=== PATIENT | male | born 1990 | race American Indian/Alaskan Native ===

== ENCOUNTER 2016-09-07 16:27 | Emergency (ER) | payer BC ==
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
[2016-09-07] MEDS ORDERED: TORADOL IM ONE (17:58)
[2016-09-07] MEDS ORDERED: MORPHINE IM ONE (17:58)
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
[2016-09-07 18:43] VITALS: BP 134/93
[2016-09-07] MEDS ORDERED: NACL 0.9% 500 ML IR ONE (19:04)
--- NOTE | 2016-09-08 07:57 | XRay Report ---
RIGHT ANKLE, 3 views: History: Right ankle pain. Findings: Mild soft tissue swelling is identified. No acute osseous abnormality or joint pathology is identified. The fifth metatarsal base is intact. Impression: Soft tissue swelling. No acute osseous injury.
== END 2016-09-07 19:30 | disposition home or self-care (01) ==
LOC: ED 16:27
DX: S90.01XA Contusion of right ankle, initial encounter (principal); S60.511A Abrasion of right hand, initial encounter; F17.210 Nicotine dependence, cigarettes, uncomplicated; V89.9XXA Person injured in unspecified vehicle accident, initial encounter; Y93.89 Activity, other specified; Y92.488 Other paved roadways as the place of occurrence of the external cause; Y99.8 Other external cause status
CPT/HCPCS: 73130; 73562; 73590; 73610; 73630; 96372; 99283; J1885; J2270

== ENCOUNTER 2016-10-04 14:55 | Emergency (ER) | payer BC ==
--- NOTE | 2016-10-04 15:27 | Emergency Department Report ---
Entered by ANDREINA GONZALEZ, acting as scribe for ROSI SWIFT NP. Chief Complaint: Shoulder Injury Stated Complaint: TREE FELL ON HIM Time Seen by Provider: 10/04/16 15:01 - HPI History of Present Illness: 26 y/o male presents with left shoulder and left arm pain s/p injury that occurred while cutting a tree earlier today. Additional Sx include mild numbness to left arm and fingers. - ROS Review of Systems: +left shoulder pain +left arm pain +numbness - Exam Vital Signs: Vital Signs 10/04/16 15:13 Temperature 99.1 F Pulse Rate 86 Respiratory 18 Rate Blood Pressure 132/89 O2 Sat by Pulse 97 Oximetry Physical Exam: BACK: abrasion noted to back NECK: No posterior c spine ttp CHEST: chest wall ttp, left sided SKIN: abrasion and contusion to left shoulder, back and left side of chest MSE screening note: Focused history and physical exam performed. Due to findings the following was ordered: xr ED Disposition for MSE Condition: Stable This documentation as recorded by the scribe,ANDREINA GONZALEZ,accurately reflects the service I personally performed and the decisions made by JAMISON garza TRACY M, NP.
[2016-10-04] MEDS ORDERED: DILAUDID IV ONE (16:40)
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
[2016-10-04] MEDS ORDERED: NACL 0.9% 1000 ML 1,000 ML IV ONE (16:42)
[2016-10-04 17:05] VITALS: BP 120/80
[2016-10-04 17:09] LABS: Basophils % (Auto) 0.5 % (0.0-1.8); Eosinophils % (Auto) 1.3 % (0.0-4.3); Hematocrit 40.3 % (35.5-45.6); Hemoglobin 13.1 gm/dl (11.8-15.2); Mean Corpuscular HGB Conc 32 % (32-34); Mean Corpuscular Volume 79 fl (84-94); Platelet Count 285 K/mm3 (140-440); Red Blood Count 5.13 M/mm3 (3.65-5.03); Red Cell Distribution Width 13.8 % (13.2-15.2); White Blood Count 13.4 K/mm3 (4.5-11.0)
[2016-10-04 17:10] LABS: Mean Corpuscular Hemoglobin 26 pg (28-32)
[2016-10-04 17:19] LABS: INR 1.03 (0.87-1.13)
[2016-10-04 17:52] LABS: Chloride 102.9 mmol/L (98-107); Potassium 4.4 mmol/L (3.6-5.0); Sodium 141 mmol/L (137-145)
[2016-10-04 17:53] LABS: Alanine Aminotransferase 16 units/L (7-56); Albumin 4.3 g/dL (3.9-5); Albumin/Globulin Ratio 1.5 %; Alkaline Phosphatase 70 units/L (35-129); Anion Gap 16 mmol/L; BUN/Creatinine Ratio 13.33; Blood Urea Nitrogen 12 mg/dL (9-20); Calcium 9.2 mg/dL (8.4-10.2); Carbon Dioxide 27 mmol/L (22-30); Creatine Kinase 245 units/L (55-170); Glucose 77 mg/dL (75-100); Total Protein 7.2 g/dL (6.3-8.2)
--- NOTE | 2016-10-05 08:33 | XRay Report ---
LEFT HUMERUS: History: Left arm pain. AP and lateral views of the humerus demonstrate normal mineralization and contours for this patient's age. No destructive changes are noted and the adjacent soft tissues are normal. IMPRESSION: Normal left humerus.
--- NOTE | 2016-10-05 08:33 | XRay Report ---
ROUTINE CHEST, TWO VIEWS: HISTORY: chest pain. The trachea, heart, mediastinal contour, lung davis and bony thorax are unremarkable. IMPRESSION: Unremarkable chest x-ray.
--- NOTE | 2016-10-05 08:33 | XRay Report ---
LEFT SHOULDER: History: Left shoulder pain. Routine views demonstrate normal bony and soft tissue structures with normal joint alignment of the shoulder. IMPRESSION: Normal study.
--- NOTE | 2016-10-05 08:34 | XRay Report ---
THORACIC SPINE: History: Back pain. The bones are normally mineralized with well preserved vertebral height, alignment and interspace distances. No paraspinal soft tissue widening is noted. IMPRESSION: Normal study.
== END 2016-10-04 17:45 | disposition short-term general hospital (02) ==
LOC: ED 14:55
DX: S40.012A Contusion of left shoulder, initial encounter (principal); R07.89 Other chest pain; M62.81 Muscle weakness (generalized); Z91.018 Allergy to other foods; W20.8XXA Other cause of strike by thrown, projected or falling object, initial encounter; Y93.89 Activity, other specified; Y99.9 Unspecified external cause status; Y92.89 Other specified places as the place of occurrence of the external cause
CPT/HCPCS: 36415; 71020; 72070; 73030; 73060; 80053; 82550; 85025; 85610; 96361; 96374; 99285; J1170; J7030

== ENCOUNTER 2016-10-10 12:58 | Emergency (ER) | payer BC ==
[2016-10-10 13:15] VITALS: BP 120/81
[2016-10-10] MEDS ORDERED: TORADOL IM ONE (14:03)
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
== END 2016-10-10 14:24 | disposition home or self-care (01) ==
LOC: ED 12:58
DX: M79.1 Myalgia (principal)
CPT/HCPCS: 96372; 99282; J1885

== ENCOUNTER 2020-01-21 15:17 | Emergency (ER) | payer SELFPAY ==
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
--- NOTE | 2020-01-21 15:48 | Cat Scan Report ---
CT HEAD WITHOUT CONTRAST INDICATION : Stroke, neurological deficits <6 hours or symptoms present upon waking. TECHNIQUE: Axial imaging performed from the skull apex through the skull base without the use of con trast. Sagittal and coronal reformatted images. All CT scans at this location are performed using C T dose reduction for ALARA by means of automated exposure control. COMPARISON: None available FINDINGS: Parenchyma: A large area of encephalomalacia is identified in the right cerebral hemisphere measurin g up to 11.3 x 4.5 x 8.5 cm. This involves the right frontal, right parietal and superior right tempo ral lobes. It is unclear if this represents a chronic right MCA infarct or previous traumatic brain i njury. There is a smaller area of chronic encephalomalacia in the right subfrontal region measuring u p to 2 cm in diameter. No acute parenchymal findings, hemorrhage or mass is appreciated. No extra-axi al fluid collection. Ventricles: There is compensatory enlargement of the right lateral ventricle. The left lateral ventr icle, third and fourth ventricles are unremarkable. Bones: Right craniotomy changes are noted, correlate with history. Sinuses: The left frontal sinus and anterior left ethmoid air cells are opacified. The remaining sin uses and mastoid air cells are clear. Soft tissues: Soft tissues including the orbits appear normal. IMPRESSION: No acute intracranial abnormality is appreciated. Large and small area of encephalomalaci a in the right cerebral hemisphere which is probably secondary to traumatic brain injury although inf arct could be considered. CODE STROKE: Time of Communication (COMMUNICATIONS MAINTAINER/CDT): 1443 hours Licensed Practitioner Receiving Report: Dr. Vicente Dowling read back was performed. Signer Name: Adarsh Schafer Jr, MD Signed: 01/21/2020 3:43 PM Workstation Name: [id number]
[2020-01-21] MEDS ORDERED: levETIRAcetam 1000 MG/NS 0.75% 1,000 MG/100 ML BAG IV ONE (16:04)
[2020-01-21 16:09] LABS: Basophils % (Auto) 0.9 % (0.0-1.8); Eosinophils # (Auto) 0.2 K/mm3 (0.0-0.4); Eosinophils % (Auto) 3.8 % (0.0-4.3); Hematocrit 43.2 % (35.5-45.6); Hemoglobin 14.2 gm/dl (11.8-15.2); Lymphocytes # (Auto) 1.2 K/mm3 (1.2-5.4); Lymphocytes % (Auto) 22.6 % (13.4-35.0); Mean Corpuscular HGB Conc 33 % (32-34); Mean Corpuscular Volume 80 fl (84-94); Monocytes # (Auto) 0.6 K/mm3 (0.0-0.8); Monocytes % (Auto) 10.9 % (0.0-7.3); Platelet Count 223 K/mm3 (140-440); Red Cell Distribution Width 15.7 % (13.2-15.2)
--- NOTE | 2020-01-21 16:10 | Cat Scan Report ---
CT angio neck HISTORY: ams COMPARISON: CT angio neck HISTORY: Altered mental status. COMPARISON: CT head same day TECHNIQUE: CTA of the neck and head is performed after IV contrast. 3-D/MIP reformats were postproces sed. Percentage stenosis is determined by direct quantitative measurements of diseased internal [place] artery diameter compared with normal distal internal carotid artery reference segments or by crit eria similar to NASCET where applicable. All CT scans at this location are performed using CT dose re duction for ALARA by means of automated exposure control. FINDINGS: Encephalomalacia in the right MCA territory. Overlying prior craniotomy. CTA NECK: Aortic arch: No significant abnormality. Cervical vertebral arteries: No occlusion or hemodynamically significant stenosis. Common Carotid arteries: No occlusion or hemodynamically significant stenosis. Internal carotid arteries: There is occlusion of the proximal internal carotid arteries directly afte r takeoff. Reconstitution of the distal ICA to Ophthalmic artery from a patent [place]. CTA HEAD: Intracranial vertebral arteries: No occlusion or significant stenosis. Basilar artery: No occlusion or significant stenosis. Posterior cerebral arteries: No occlusion or significant stenosis. Intracranial internal carotid arteries: No occlusion or significant stenosis. Anterior cerebral arteries: No occlusion or significant stenosis. Middle cerebral arteries: No occlusion or significant stenosis. No aneurysm. Additional findings: None. IMPRESSION: 1. 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 2. CTA HEAD: No occlusion or significant stenosis of the major intracranial vasculature. I infromed Dr. Zhang at 3:04 Signer Name: Baltazar Marie MD Signed: 01/21/2020 4:05 PM Workstation Name: [id number] TECHNIQUE: Routine CTA of the neck is performed. 3-D/MIP reformats were postprocessed. Percentage st enosis is determined by direct quantitative measurements of diseased internal carotid artery diameter compared with normal distal internal carotid artery reference segments or by criteria similar to DEVORA CET where applicable. All CT scans at this location are performed using CT dose reduction for ALARA b y means of automated exposure control. FINDINGS: Aortic arch: No significant abnormality. Cervical vertebral arteries: No occlusion or hemodynamically significant stenosis. Common Carotid arteries: No occlusion or hemodynamically significant stenosis. Internal carotid arteries: No occlusion or hemodynamically significant stenosis. Additional findings: None. IMPRESSION: 1. No occlusion or significant stenosis.
--- NOTE | 2020-01-21 16:10 | Cat Scan Report ---
CT angio head HISTORY: Altered mental status COMPARISON: CT head same day.. TECHNIQUE: CTA of the neck and head is performed after IV contrast. 3-D/MIP reformats were postproces sed. Percentage stenosis is determined by direct quantitative measurements of diseased internal [place] artery diameter compared with normal distal internal carotid artery reference segments or by crit eria similar to NASCET where applicable. All CT scans at this location are performed using CT dose re duction for ALARA by means of automated exposure control. FINDINGS: Encephalomalacia in the right MCA territory. Overlying prior craniotomy. CTA NECK: Aortic arch: No significant abnormality. Cervical vertebral arteries: No occlusion or hemodynamically significant stenosis. Common Carotid arteries: No occlusion or hemodynamically significant stenosis. Internal carotid arteries: There is occlusion of the proximal internal carotid arteries directly afte r takeoff. Reconstitution of the distal ICA to Ophthalmic artery from a patent [place]. CTA HEAD: Intracranial vertebral arteries: No occlusion or significant stenosis. Basilar artery: No occlusion or significant stenosis. Posterior cerebral arteries: No occlusion or significant stenosis. Intracranial internal carotid arteries: No occlusion or significant stenosis. Anterior cerebral arteries: No occlusion or significant stenosis. Middle cerebral arteries: No occlusion or significant stenosis. No aneurysm. Additional findings: None. IMPRESSION: 1. 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 2. CTA HEAD: No occlusion or significant stenosis of the major intracranial vasculature. I infromed Dr. Zhang at 3:04 Signer Name: Baltazar Marie MD Signed: 01/21/2020 4:05 PM Workstation Name: [id number]
[2020-01-21 16:18] LABS: INR 1.15 (0.87-1.13)
[2020-01-21 16:19] LABS: Partial Thromboplastin Time 36.1 Sec. (24.2-36.6)
[2020-01-21 16:32] LABS: BUN/Creatinine Ratio 14; Blood Urea Nitrogen 13 mg/dL (9-20); Calcium 9.2 mg/dL (8.4-10.2); Hemolysis Index 2
[2020-01-21 20:33] VITALS: BP 114/80
== END 2020-01-21 18:25 | disposition admitted as inpatient to this hospital (09) ==
LOC: ED 15:17
DX: G81.90 Hemiplegia, unspecified affecting unspecified side (principal); R47.9 Unspecified speech disturbances; R41.89 Other symptoms and signs involving cognitive functions and awareness; Z79.899 Other long term (current) drug therapy; Z91.018 Allergy to other foods; Z98.890 Other specified postprocedural states; Z87.820 Personal history of traumatic brain injury
CPT/HCPCS: 36415; 70450; 70496; 70498; 80048; 82962; 84484; 85025; 85610; 85670; 85730; 93005; 96374; 99284; J1953; Q9967

== ENCOUNTER 2020-06-11 03:08 | Emergency (ER) | payer BC, MEDICAID ==
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
[2020-06-11 03:47] LABS: Basophils % (Auto) 0.2 % (0.0-1.8); Eosinophils % (Auto) 0.1 % (0.0-4.3); Hematocrit 42.3 % (35.5-45.6); Hemoglobin 13.9 gm/dl (11.8-15.2); Lymphocytes # (Auto) 0.9 K/mm3 (1.2-5.4); Lymphocytes % (Auto) 7.6 % (13.4-35.0); Mean Corpuscular HGB Conc 33 % (32-34); Mean Corpuscular Volume 79 fl (84-94); Platelet Count 239 K/mm3 (140-440); Red Blood Count 5.35 M/mm3 (3.65-5.03); Red Cell Distribution Width 14.6 % (13.2-15.2)
[2020-06-11 04:08] LABS: Alanine Aminotransferase 35 units/L (7-56); Albumin 4.4 g/dL (3.9-5); BUN/Creatinine Ratio 21; Blood Urea Nitrogen 19 mg/dL (9-20); Calcium 9.4 mg/dL (8.4-10.2); Hemolysis Index 4
--- NOTE | 2020-06-11 04:48 | Cat Scan Report ---
CT HEAD WITHOUT CONTRAST INDICATION / CLINICAL INFORMATION: Altered Mental Status. TECHNIQUE: All CT scans at this location are performed using CT dose reduction for ALARA by means of automated exposure control. COMPARISON: 01/21/2020 FINDINGS: HEMORRHAGE: None. EXTRA-AXIAL SPACES: Normal in size and morphology for the patient's age. VENTRICULAR SYSTEM: There is compensatory enlargement of the right lateral ventricle related to the e ncephalomalacia on the right.. This is unchanged. CEREBRAL PARENCHYMA: Large area of encephalomalacia on the right which appears unchanged. There is fo [place] encephalomalacia in the frontal lobe as well. This is also unchanged. MIDLINE SHIFT / HERNIATION: None. CEREBELLUM / BRAINSTEM: Small focal hypodensity appears unchanged ORBITS: Normal as visualized. SOFT TISSUES: No significant abnormality. SKULL: Prior right craniotomy is noted PARANASAL SINUSES / MASTOID AIR CELLS: Normal as visualized. ADDITIONAL FINDINGS: None. IMPRESSION: 1. No acute intracranial abnormality. Encephalomalacia on the right is again noted. Changes of prior right craniotomy are again noted. Signer Name: Micah Sun MD Signed: 06/11/2020 4:43 AM Workstation Name: [id number]
[2020-06-11] MEDS ORDERED: LORazepam 2 MG/ML VIAL ONE (08:54)
[2020-06-11] MEDS ORDERED: LORazepam 2 MG/ML VIAL IM ONE (08:55)
[2020-06-11] MEDS ORDERED: ZIPRASIDONE MESYLATE 20 MG VIAL IM ONE (08:55)
[2020-06-11] MEDS ORDERED: ALUM-MAG HYDROXIDE-SIMETHICONE 200-200-20MG/5ML ORAL LIQD 30 ML PO PRN (08:56)
[2020-06-11] MEDS ORDERED: ACETAMINOPHEN 325 MG TAB PO PRN (08:56)
[2020-06-11] MEDS ORDERED: MAGNESIUM HYDROXIDE (MOM) ORAL LIQD UDC PO PRN (08:56)
[2020-06-11] MEDS: ZIPRASIDONE MESYLATE 20 MG VIAL IM PRN (09:19)
[2020-06-11] MEDS: LORazepam 2 MG/ML VIAL IM PRN (09:19)
--- NOTE | 2020-06-11 12:12 | Electrocardiograph Report ---
[facility] Test Date: 2020-06-11 Test Time: 04:10:27 Pat Name: DENITA MEYERS Department: Room: Gender: M Personal Support Worker: SHARON : 1990 Requested By: RANDALL BUSTOS Order Number: [id number] Reading MD: Carlos Mann Measurements Intervals [place] Rate: 99 P: IN: QRS: 99 QRSD: 99 T: 56 QT: 353 QTc: 453 Interpretive Statements NSR NONSPECIFIC REPOL ABNORMALITY, ANT-LAT LEADS No previous ECG available for comparison Electronically Signed On 06-11-2020 12:12:05 EDT by Carlos Mann
[2020-06-11] MEDS ORDERED: QUEtiapine 100 MG TAB PO SCH (22:00)
[2020-06-11 23:29] LABS: Bilirubin,Urine NEG (Negative); Blood,Urine NEG (Negative); Color,Urine Yellow (Yellow); Mucus,Urine 1+ /HPF; Protein,Urine <15 mg/dL mg/dL (Negative)
[2020-06-11 23:34] LABS: Amphetamine Screen,Urine PRESUMPTIVE NEGATIVE; Benzodiazepines Screen,Urine PRESUMPTIVE POSITIVE; Cannabinoid Screen,Urine PRESUMPTIVE POSITIVE; Cocaine Screen,Urine PRESUMPTIVE NEGATIVE; Methadone Screen,Urine PRESUMPTIVE NEGATIVE; Opiate Screen,Urine PRESUMPTIVE NEGATIVE
[2020-06-12] MEDS ORDERED: QUEtiapine 100 MG TAB PO ONE (00:07)
[2020-06-12] MEDS: LORazepam 2 MG/ML VIAL IM PRN (02:30)
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
[2020-06-12 09:26] VITALS: BP 149/94
[2020-06-12] MEDS: clonazePAM 0.5 MG TAB PO SCH ×2 (10:57→11:15)
[2020-06-12] MEDS ORDERED: WATER FOR INJ Sterile (PF) 10 ML ONE (13:01)
[2020-06-12] MEDS: ZIPRASIDONE MESYLATE 20 MG VIAL IM PRN (14:00)
== END 2020-06-12 15:25 | disposition home or self-care (01) ==
LOC: ED 03:08 → EEVIPCON 03:08 → ED 06-12 15:25
DX: S09.90XA Unspecified injury of head, initial encounter (principal); I63.9 Cerebral infarction, unspecified; G35 Multiple sclerosis; R41.0 Disorientation, unspecified; Z79.899 Other long term (current) drug therapy; Z88.8 Allergy status to other drugs, medicaments and biological substances; Z20.822 Contact with and (suspected) exposure to COVID-19; R46.89 Other symptoms and signs involving appearance and behavior; X58.XXXA Exposure to other specified factors, initial encounter; Y93.89 Activity, other specified; Y92.89 Other specified places as the place of occurrence of the external cause; Y99.8 Other external cause status
CPT/HCPCS: 36415; 70450; 80053; 80307; 81001; 85025; 93005; 96372; 99284; J2060; J3486; U0003; 80320; G0480

== ENCOUNTER 2020-07-09 05:28 | Emergency (ER) | payer MEDICAID ==
[2020-07-09 06:16] LABS: Basophils # (Auto) 0.1 K/mm3 (0.0-0.1); Basophils % (Auto) 0.9 % (0.0-1.8); Eosinophils % (Auto) 0.2 % (0.0-4.3); Hematocrit 45.9 % (35.5-45.6); Hemoglobin 15.4 gm/dl (11.8-15.2); Lymphocytes # (Auto) 1.2 K/mm3 (1.2-5.4); Lymphocytes % (Auto) 15.9 % (13.4-35.0); Mean Corpuscular HGB Conc 34 % (32-34); Mean Corpuscular Volume 80 fl (84-94); Monocytes # (Auto) 0.7 K/mm3 (0.0-0.8); Monocytes % (Auto) 8.9 % (0.0-7.3); Platelet Count 231 K/mm3 (140-440); Red Blood Count 5.73 M/mm3 (3.65-5.03); Red Cell Distribution Width 14.4 % (13.2-15.2)
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
[2020-07-09 06:34] LABS: Blood Urea Nitrogen 7 mg/dL (9-20); Calcium 9.4 mg/dL (8.4-10.2); Hemolysis Index 5
[2020-07-09 06:35] LABS: BUN/Creatinine Ratio 10
[2020-07-09] MEDS ORDERED: ZIPRASIDONE MESYLATE 20 MG VIAL IM ONE ×2 (06:52)
[2020-07-09] MEDS ORDERED: LORazepam 2 MG/ML VIAL ONE (06:52)
[2020-07-09] MEDS ORDERED: LORazepam 2 MG/ML VIAL IM ONE (06:52)
[2020-07-09] MEDS ORDERED: WATER FOR INJ Sterile (PF) 10 ML ONE (06:53)
[2020-07-09] MEDS ORDERED: ZIPRASIDONE MESYLATE 20 MG VIAL IM PRN (14:56)
[2020-07-09] MEDS ORDERED: LORazepam 2 MG/ML VIAL IM PRN (14:58)
[2020-07-09] MEDS ORDERED: MAGNESIUM HYDROXIDE (MOM) ORAL LIQD UDC PO PRN (14:59)
[2020-07-09] MEDS ORDERED: ACETAMINOPHEN 325 MG TAB PO PRN (14:59)
[2020-07-09] MEDS ORDERED: ALUM-MAG HYDROXIDE-SIMETHICONE 200-200-20MG/5ML ORAL LIQD 30 ML PO PRN (14:59)
[2020-07-10 00:36] LABS: Amphetamine Screen,Urine PRESUMPTIVE NEGATIVE; Benzodiazepines Screen,Urine PRESUMPTIVE NEGATIVE; Cannabinoid Screen,Urine PRESUMPTIVE NEGATIVE; Cocaine Screen,Urine PRESUMPTIVE NEGATIVE; Methadone Screen,Urine PRESUMPTIVE NEGATIVE; Opiate Screen,Urine PRESUMPTIVE NEGATIVE
[2020-07-10 00:44] LABS: Bilirubin,Urine NEG (Negative); Blood,Urine NEG (Negative); Color,Urine Amber (Yellow); Mucus,Urine 3+ /HPF
--- NOTE | 2020-07-10 12:29 | Consultation ---
History of Present Illness - Reason for Consult Consult date: 07/10/20 Reason for consult: MHE Requesting physician: MERY TOMLINSON - History of Present Psychiatric Illness Per ED Provider: This is a 29-year-old man with traumatic brain surgery and previous craniotomy. He reports to the emergency department again other very similar conditions compared with his evaluation at the end of June. Apparently again he has been very aggressive with his family. He was brought here for stabilization. It looks like he was placed on a benzodiazepine and released after psychiatric evaluation: PSYCH HPI Patient is a 29-year-old unemployed currently disabled -[place] male with past medical history of traumatic brain injury with stroke status post left-sided weakness and also blindness in left eye and limited lesion in the right eye who presented to the ED by family with complaint of behavioral disturbances. Patient states he is as a personal detriment and because he wants to get out of the house. Patient started reciting jainism citations. 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 Family Psychiatric History: None reported or documented SOCIAL HISTORY Marital Status: Living Arrangements: traumatic brain injury with stroke status post left-sided weakness and also blindness in left eye and limited lesion in the right eye Employment Status: disabled Access to guns/weapons:none rported Education: college drop out History of Abuse: none reported Legal History: none REVIEW OF SYSTEMS ROS cannot be reliably obtained from the patient due to his confusion MENTAL STATUS EXAMINATION General Appearance and Behavior: Age appropriate, good hygiene, not wearing appropriate clothes, good eye contact, cooperative polite with questioning. Cooperation: Participating/engaged Psychomotor Behavior: Psychomotor agitation Mood: Good Affect and affective range: euthymic, euphoric Thought Process:Circumstantial, Illogical, Thought Content: Flight of ideas, Illogical, Grandiose, Speech: pressured, loud volume at times Intellectual Functioning: Average Suicidal Ideation: Denies SI Homicidal Ideation: Denies HIl Impulse Control: Impaired Insight and Judgment: Limited insight and judgment Memory: Normal, Attention: Divided attention impaired Orientation: Alert, oriented, MENTAL STATUS EXAMINATION General Appearance and Behavior: Age appropriate, good hygiene, wearing appropriate clothes, poor eye contact, uncooperative with questioning. Cooperation: disengaged Psychomotor Behavior: Psychomotor agitation Mood: n/a Affect and affective range: euthymic, euphoric Thought Process: Illogical, echolalial Thought Content: delusional Speech: pressured, loud volume at times Intellectual Functioning: Average Suicidal Ideation: n/a Homicidal Ideation: n/a Impulse Control: Impaired Insight and Judgment: Limited insight and judgment Memory: impaired Attention: Divided attention impaired Orientation: Alert, Assessment and Plan - Psychiatric problem (1) Cognitive and behavioral changes Current Visit: Yes Status: Acute Patient cannot benefit from acute inpatient due to hx TBI s/p impaired cognitive function. MEDICATIONS: Risks, benefits and alternatives of medications discussed with the patient, questions answered and consent obtained from patient. PSYCHOTHERAPY: Supportive psychotherapy provided MEDICAL: Per primary team DELIRIUM PRECAUTIONS: Please re-orient patient frequently, keep lights on during the day, and minimize benzodiazepines and opiates as these medications could worsen patient's confusion. SENIOR SYSTEMS DEVELOPER: DISPOSITION: Do Not Recommend acute inpatient psychiatric hospitalization at this time. Case discussed with Dr. Villatoor who agrees with current disposition LEGAL STATUS: 1013 rescinded FOLLOW-UP: Will sign off Thank you for the consult. Please contact with any questions and/or concerns. Medications and Allergies Allergies Allergy/AdvReac Type Severity Reaction Status Date / Time LEAFY FOODS Allergy Mild Vomiting Uncoded 06/11/20 11:04 Home Medications Medication Instructions Recorded Confirmed Last Taken Type Ibuprofen [Motrin 600 MG tab] 600 mg PO Q8H PRN #30 tablet 09/07/16 06/11/20 Unknown Rx ALPRAZolam [Xanax TAB] 0.25 mg PO BID PRN #30 tab 01/21/20 06/11/20 Unknown Rx FLUoxetine [PROzac] 20 mg PO QDAY 06/11/20 06/11/20 Unknown History Scopolamine [Transderm-Scop] 1 each TD ONCE 06/11/20 06/11/20 Unknown History QUEtiapine [SEROquel] 100 mg PO QHS 06/12/20 06/12/20 Unknown History clonazePAM [Klonopin] 1 mg PO TID #90 tablet 06/12/20 Unknown Rx Active Meds: Active Medications Acetaminophen (Acetaminophen 325 Mg Tab) 650 mg PO Q4HR PRN PRN Reason: Pain MILD(1-3)/Fever >100.5/MERIDA Al Hydrox/Mg Hydrox/Simethicone (Alum-Mag Hydroxide-Simethicone [phone]/5ml Oral Liqd 30 Ml) 30 ml PO Q4HR PRN PRN Reason: Indigestion Lorazepam (Lorazepam 2 Mg/Ml Vial) 1 mg IM Q12H PRN PRN Reason: Agitation Magnesium Hydroxide (Magnesium Hydroxide (Mom) Oral Liqd Udc) 30 ml PO Q12HR PRN PRN Reason: Constipation Ziprasidone (Ziprasidone Mesylate 20 Mg Vial) 10 mg IM Q12H PRN PRN Reason: Agitation Mental Status Exam - Vital signs Last Vital Signs Temp 97.9 F 07/10/20 07:46 Pulse 88 07/10/20 07:46 Resp 18 07/10/20 07:46 BP 128/94 07/10/20 07:46 Pulse Ox 98 07/10/20 07:46 Results Result Diagrams: 07/09/20 05:55 07/09/20 05:55 Abnormal lab results 07/10/20 Range/Units 00:11 Urine WBC (Auto) 11.0 H (0.0-6.0) /HPF All other labs normal. Assessment and Plan - Psychiatric problem (1) Cognitive and behavioral changes Current Visit: Yes Status: Acute
[2020-07-10 20:30] VITALS: BP 130/55
== END 2020-07-10 21:33 | disposition other institution (70) ==
LOC: ED 05:28 → EEVIPCON 05:28 → ED 07-10 21:33
DX: F23 Brief psychotic disorder (principal); G93.89 Other specified disorders of brain; Z79.899 Other long term (current) drug therapy; Z88.8 Allergy status to other drugs, medicaments and biological substances; Z20.822 Contact with and (suspected) exposure to COVID-19
CPT/HCPCS: 36415; 80048; 80307; 81001; 85025; 87086; 96372; 99284; J2060; J3486; U0003; 80320; G0480

== ENCOUNTER 2020-07-29 20:27 | Emergency (ER) | payer MEDICAID ==
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
[2020-07-29 22:01] LABS: Basophils # (Auto) 0.1 K/mm3 (0.0-0.1); Basophils % (Auto) 0.7 % (0.0-1.8); Eosinophils % (Auto) 0.4 % (0.0-4.3); Hematocrit 43.1 % (35.5-45.6); Hemoglobin 14.3 gm/dl (11.8-15.2); Lymphocytes # (Auto) 1.1 K/mm3 (1.2-5.4); Lymphocytes % (Auto) 12.6 % (13.4-35.0); Mean Corpuscular HGB Conc 33 % (32-34); Mean Corpuscular Volume 80 fl (84-94); Monocytes # (Auto) 0.9 K/mm3 (0.0-0.8); Monocytes % (Auto) 9.9 % (0.0-7.3); Platelet Count 237 K/mm3 (140-440); Red Blood Count 5.39 M/mm3 (3.65-5.03); Red Cell Distribution Width 14.5 % (13.2-15.2)
[2020-07-29 22:19] LABS: Blood Urea Nitrogen 12 mg/dL (9-20); Calcium 9.3 mg/dL (8.4-10.2); Hemolysis Index 11
[2020-07-29 22:25] LABS: BUN/Creatinine Ratio 17
--- NOTE | 2020-07-30 10:08 | XRay Report ---
LEFT SHOULDER 3 VIEWS INDICATION / CLINICAL INFORMATION: pain. COMPARISON: None available. FINDINGS: No significant skeletal abnormality Signer Name: Ruben Lynn MD FACR Signed: 07/30/2020 10:04 AM Workstation Name: [id number]
--- NOTE | 2020-07-30 10:29 | Event Note ---
Date: 07/30/20 No overnight issues. No complaint. Vital signs reviewed and is unremarkable. Labs reviewed and is unremarkable. Waiting for psychiatric assessment and disposition.
--- NOTE | 2020-07-30 10:45 | Consultation ---
History of Present Illness - Reason for Consult Consult date: 07/30/20 Reason for consult: agitation - History of Present Psychiatric Illness Per ED Note: Patient is a 29-year-old male who presents with agitation patient was sedated with Haldol 5 mg of Versed and 50 of Benadryl patient has a history of traumatic brain injury and CVA history is limited due to patient's condition as patient is sedated. Scott Hurst is a 29y/o male patient who was brought in by his mother for agitation. During my interview with the patient he was calm, cooperative and polite. He greeted my and thanked me. I assisted the patient to put his shirt on. He has no use of his left arm. He says it was injured yesterday by police when the cuffed him behind his back in his wheelchair. The patient says he got into an altercation with his mother. He says "she doesn't want me there but I have another place to go and she's mad." He denies SI/HI, he says "ma'am I'm not a bad person. I'm not gone do that." He also denies hallucinations of any kind. 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 Cooperation: Participating/engaged Psychomotor Behavior: Psychomotor agitation Mood: Good Affect and affective range: euthymic, euphoric Thought Process:Circumstantial, Illogical, Thought Content: Flight of ideas, Illogical, Grandiose, Speech: pressured, loud volume at times Intellectual Functioning: Average Suicidal Ideation: Denies SI Homicidal Ideation: Denies HIl Impulse Control: Impaired Insight and Judgment: Limited insight and judgment Memory: Normal, Attention: Divided attention impaired Orientation: Alert, oriented, MENTAL STATUS EXAMINATION General Appearance and Behavior: Age appropriate, good hygiene, wearing appropriate clothes, good eye contact, cooperative with questioning. Cooperation: cooperative Psychomotor Behavior: Psychomotor normal Mood: "alright" Affect and affective range: euthymic Thought Process: goal directed Thought Content: none Speech: normal tone and pace Suicidal Ideation: Denies Homicidal Ideation: Denies Hallucinations: Denies Delusions: None elicited Impulse Control: Impaired Insight and Judgment: Limited insight and judgment Memory: Limited Attention: Undivided attention impaired Orientation: Alert, oriented Diagnoses: Mood Disorder, Unspecified Treatment Plan d/c 1013 MEDICATIONS: Continue home meds previously prescribed Risks, benefits and alternatives of medications discussed with the patient, questions answered and consent obtained from patient. PSYCHOTHERAPY: Supportive psychotherapy provided MEDICAL: Per primary team DELIRIUM PRECAUTIONS: Please re-orient patient frequently, keep lights on during the day, and minimize benzodiazepines and opiates as these medications could worsen patient's confusion. 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 Case discussed with Dr. Villatoro who agrees with current disposition FOLLOW-UP: Will sign off Thank you for the consult. Please contact with any questions and/or concerns. Medications and Allergies Allergies Allergy/AdvReac Type Severity Reaction Status Date / Time LEAFY FOODS Allergy Mild Vomiting Uncoded 06/11/20 11:04 Home Medications Medication Instructions Recorded Confirmed Last Taken Type Ibuprofen [Motrin 600 MG tab] 600 mg PO Q8H PRN #30 tablet 09/07/16 06/11/20 Unknown Rx ALPRAZolam [Xanax TAB] 0.25 mg PO BID PRN #30 tab 01/21/20 06/11/20 Unknown Rx FLUoxetine [PROzac] 20 mg PO QDAY 06/11/20 06/11/20 Unknown History Scopolamine [Transderm-Scop] 1 each TD ONCE 06/11/20 06/11/20 Unknown History QUEtiapine [SEROquel] 100 mg PO QHS 06/12/20 06/12/20 Unknown History clonazePAM [Klonopin] 1 mg PO TID #90 tablet 06/12/20 Unknown Rx Mental Status Exam - Vital signs Last Vital Signs Temp 98.9 F 07/30/20 02:00 Pulse 90 07/30/20 02:00 Resp 20 07/30/20 02:00 BP 117/68 07/30/20 02:00 Pulse Ox 98 07/30/20 02:00 Results Result Diagrams: 07/29/20 21:47 07/29/20 21:47 Abnormal lab results 07/29/20 07/29/20 07/29/20 Range/Units 21:47 21:47 21:47 RBC 5.39 H (3.65-5.03) M/mm3 MCV 80 L (84-94) fl MCH 26 L (28-32) pg Lymph % (Auto) 12.6 L (13.4-35.0) % [place] % (Auto) 9.9 H (0.0-7.3) % Lymph # (Auto) 1.1 L (1.2-5.4) K/mm3 [place] # (Auto) 0.9 H (0.0-0.8) K/mm3 Seg Neutrophils % 76.4 H (40.0-70.0) % Potassium 3.5 L (3.6-5.0) mmol/L Creatinine 0.7 L (0.8-1.3) mg/dL Salicylates < 0.3 L (2.8-20.0) mg/dL Acetaminophen (10.0-30.0) ug/mL 07/29/20 Range/Units 21:47 RBC (3.65-5.03) M/mm3 MCV (84-94) fl MCH (28-32) pg Lymph % (Auto) (13.4-35.0) % [place] % (Auto) (0.0-7.3) % Lymph # (Auto) (1.2-5.4) K/mm3 [place] # (Auto) (0.0-0.8) K/mm3 Seg Neutrophils % (40.0-70.0) % Potassium (3.6-5.0) mmol/L Creatinine (0.8-1.3) mg/dL Salicylates (2.8-20.0) mg/dL Acetaminophen 5.0 L (10.0-30.0) ug/mL All other labs normal.
[2020-07-30 11:31] VITALS: BP 115/76
[2020-07-30 18:28] LABS: Amphetamine Screen,Urine Negative; Cannabinoid Screen,Urine Negative; Cocaine Screen,Urine Negative; Methadone Screen,Urine Negative; Opiate Screen,Urine Negative
[2020-07-30 19:04] LABS: Benzodiazepines Screen,Urine Positive
== END 2020-07-30 18:56 ==
LOC: ED 20:27
DX: R45.6 Violent behavior (principal); Z20.822 Contact with and (suspected) exposure to COVID-19; Z86.73 Personal history of transient ischemic attack (TIA), and cerebral infarction without residual deficits; Z98.890 Other specified postprocedural states; Z91.018 Allergy to other foods; Z79.899 Other long term (current) drug therapy
CPT/HCPCS: 36415; 73030; 80048; 80307; 85025; 99285; U0003; 80320; G0480

== ENCOUNTER 2020-08-22 21:33 | Emergency (ER) | payer MEDICAID | END 2020-08-22 21:38 | disposition left against medical advice (07) | LOC: ED 21:33 | DX: Z53.21 Procedure and treatment not carried out due to patient leaving prior to being seen by health care provider (principal) ==